=== PATIENT | female | born 1985 | race African-American/Black ===

== ENCOUNTER 2020-12-14 18:07 | Emergency (ER) | payer OTHER ==
[2020-12-14 18:28] VITALS: TEMP 98.2; BMI 37.8
[2020-12-14] MEDS ORDERED: SODIUM CHLORIDE 1,000 ML IV STA ×2 (19:26→20:34)
[2020-12-14] MEDS ORDERED: METOCLOPRAMIDE HCL INJECTION 10 MG/2 ML VIAL IVPB ONE (19:32)
[2020-12-14] MEDS ORDERED: ACETAMINOPHEN 1000 MG/100 ML VIAL (NON FORMULARY) IVPB ONE (19:32)
[2020-12-14] MEDS ORDERED: ACETAMINOPHEN INJECTION 100 ML IVPB ONE (19:38)
[2020-12-14] MEDS ORDERED: METOCLOPRAMIDE HCL INJECTION 10 MG/2 ML VIAL ONE (19:38)
[2020-12-14 19:55] LABS: BASO % 1.1 % (0-2.0); EOS % 0.7 % (0-4.5); HEMATOCRIT 31.4 % (32.4-45.2); HEMOGLOBIN 10.4 GM/dL (10.7-15.3); LYMPH % 23.6 % (8-40); MCH 29.3 pg (25.7-33.7); MCHC 33.1 g/dl (32.0-36.0); MEAN CELL VOLUME 88.4 fl (80-96); MEAN PLT VOLUME 9.3 fl (7.5-11.1); MONO % 10.2 % (3.8-10.2); NEUT % 64.4 % (42.8-82.8); PLATELET COUNT 287 K/MM3 (134-434); RBC 3.55 M/mm3 (3.60-5.2); RDW 13.3 % (11.6-15.6); WHITE BLOOD COUNT 7.9 K/mm3 (4.0-10.0)
[2020-12-14 19:56] LABS: URINE APPEARANCE CLEAR; URINE BILIRUBIN NEGATIVE (NEGATIVE); URINE COLOR YELLOW; URINE GLUCOSE (UA) NEGATIVE (NEGATIVE); URINE KETONE 1+ (NEGATIVE); URINE LEUK ESTERASE NEGATIVE (NEGATIVE); URINE NITRITE NEGATIVE (NEGATIVE); URINE PROTEIN NEGATIVE (NEGATIVE); URINE UROBILINOGEN 0.2 mg/dL (0.2-1.0)
[2020-12-14 19:58] LABS: POTASSIUM 4.1 mmol/L (3.5-5.1)
[2020-12-14 20:00] LABS: BLOOD UREA NITROGEN 11.4 mg/dL (7-18); CALCIUM 9.4 mg/dL (8.5-10.1)
[2020-12-14 20:04] LABS: CREATININE 0.6 mg/dL (0.55-1.3)
[2020-12-14 20:06] LABS: BILIRUBIN,TOTAL 0.2 mg/dL (0.2-1); TOT PROT 7.1 g/dl (6.4-8.2)
[2020-12-14 20:43] VITALS: BP 112/64; PULSE 79
== END 2020-12-14 21:53 | disposition home or self-care (01) ==
LOC: JER 18:07
PROC: 3E0333Z Introduction of Anti-inflammatory into Peripheral Vein, Percutaneous Approach (ICD-10-PCS; principal; 2020-12-14)
PROC: 3E033GC Introduction of Other Therapeutic Substance into Peripheral Vein, Percutaneous Approach (ICD-10-PCS; 2020-12-14)
PROC: 3E0337Z Introduction of Electrolytic and Water Balance Substance into Peripheral Vein, Percutaneous Approach (ICD-10-PCS; 2020-12-14)
DX: E86.0 Dehydration (principal); I95.1 Orthostatic hypotension; R51.9 Headache, unspecified
CPT/HCPCS: 36415; 80053; 81003; 85025; 93005; 93010; 99284-25; J0131

== ENCOUNTER 2021-03-30 06:06 | Inpatient (IN) | payer OTHER ==
[2021-03-30 07:12] VITALS: BMI 37.9
[2021-03-30] MEDS ORDERED: ELECTROLYTE-148 SOLN 500 ML IV SCH (07:30)
[2021-03-30] MEDS ORDERED: CITRIC ACID/SODIUM CITRATE 30 ML UNIT-DOSE CUP PO ONE ×2 (07:30→08:06)
[2021-03-30] MEDS ORDERED: OXYTOCIN 20 UNITS in 0.9% NS 20 UNIT/1,000 ML INFUS.BAG IV ONE ×2 (07:58→10:25)
[2021-03-30] MEDS ORDERED: ELECTROLYTE-148 SOLN 1,000 ML IV SCH (08:00)
[2021-03-30] MEDS ORDERED: ELECTROLYTE-148 SOLN 500 ML IV ONE (08:06)
[2021-03-30] MEDS ORDERED: ONDANSETRON 4 MG/2 ML VIAL IVPUSH PRN (09:36)
[2021-03-30] MEDS ORDERED: morphine SULFATE/PF 0.5 MG/ML (2cc Syringe - QUVA) EP ONE (09:36)
[2021-03-30] MEDS ORDERED: oxyCODONE HCL 5 MG TABLET PO PRN ×2 (09:38)
[2021-03-30] MEDS ORDERED: IBUPROFEN 600 MG TABLET (FP) PO PRN (09:38)
[2021-03-30] MEDS ORDERED: METHYLERGONOVINE MALEATE 0.2 MG/1 ML AMP IM PRN (09:38)
[2021-03-30] MEDS ORDERED: OXYTOCIN 20 UNITS in 0.9% NS 20 UNIT/1,000 ML INFUS.BAG IV SCH (09:45)
[2021-03-30] MEDS: PRENATAL VITAMINS W/ FOLIC ACID TABLET (FP) PO SCH (10:55)
[2021-03-30] MEDS: ELECTROLYTE-148 SOLN 1,000 ML IV SCH (10:55)
[2021-03-30] MEDS: IBUPROFEN 800 MG/8 ML IJ IVPB PRN ×2 (12:33→19:46)
[2021-03-30] MEDS ORDERED: LABETALOL HCL 100 MG TABLET (FP) PO ONE (20:30)
[2021-03-30] MEDS ORDERED: SENNOSIDES/DOCUSATE COMBO (SENNA PLUS) TABLET (UD) PO PRN (22:00)
[2021-03-31] MEDS: ACETAMINOPHEN 325 MG TABLET (FP) PO PRN ×4 (04:10→20:16)
[2021-03-31] MEDS: SIMETHICONE 80 MG TAB.CHEW (FP) PO PRN ×4 (04:10→20:17)
[2021-03-31] MEDS: IBUPROFEN 600 MG TABLET (FP) PO PRN ×4 (04:11→20:16)
[2021-03-31] MEDS ORDERED: diphenhydrAMINE HCL 25 MG CAPSULE (FP) PO PRN (04:15)
[2021-03-31] MEDS: ELECTROLYTE-148 SOLN 1,000 ML IV SCH (09:10)
[2021-03-31] MEDS: PRENATAL VITAMINS W/ FOLIC ACID TABLET (FP) PO SCH (09:14)
[2021-03-31 09:23] LABS: BASO % 0.6 % (0-2.0); EOS % 0.4 % (0-4.5); HEMATOCRIT 27.1 % (32.4-45.2); HEMOGLOBIN 8.6 GM/dL (10.7-15.3); MCH 25.6 pg (25.7-33.7); MCHC 31.7 g/dl (32.0-36.0); MEAN CELL VOLUME 80.8 fl (80-96); MEAN PLT VOLUME 9.3 fl (7.5-11.1); MONO % 10.6 % (3.8-10.2); NEUT % 71.4 % (42.8-82.8); PLATELET COUNT 241 10^3/uL (134-434); RBC 3.35 M/mm3 (3.60-5.2); RDW 15.1 % (11.6-15.6); WHITE BLOOD COUNT 10.1 K/mm3 (4.0-10.0)
[2021-03-31] MEDS ORDERED: BISACODYL 10 MG SUPP.RECT RC PRN (09:38)
[2021-04-01] MEDS: IBUPROFEN 600 MG TABLET (FP) PO PRN ×2 (00:31→07:51)
[2021-04-01] MEDS: ACETAMINOPHEN 325 MG TABLET (FP) PO PRN ×2 (00:31→07:51)
[2021-04-01] MEDS: SIMETHICONE 80 MG TAB.CHEW (FP) PO PRN ×2 (00:32→07:51)
[2021-04-01] MEDS: ELECTROLYTE-148 SOLN 1,000 ML IV SCH (09:19)
[2021-04-01 09:53] VITALS: BP 138/93; PULSE 107; TEMP 77
[2021-04-01] MEDS: PRENATAL VITAMINS W/ FOLIC ACID TABLET (FP) PO SCH (10:24)
== END 2021-04-01 12:45 | disposition home or self-care (01) | DRG 540 ==
LOC: JLDR 06:06 → J3W 10:53
PROVIDERS: ADMIT Obstetrics & Gynecology; ATTEND Obstetrics & Gynecology
PROC: 10D00Z1 Extraction of Products of Conception, Low, Open Approach (ICD-10-PCS; principal; 2021-03-30)
PROC: 0UB70ZZ Excision of Bilateral Fallopian Tubes, Open Approach (ICD-10-PCS; 2021-03-30)
DX: O34.211 Maternal care for low transverse scar from previous cesarean delivery (principal); N85.8 Other specified noninflammatory disorders of uterus; Z3A.38 38 weeks gestation of pregnancy; Z30.2 Encounter for sterilization; O10.92 Unspecified pre-existing hypertension complicating childbirth; Z37.0 Single live birth
CPT/HCPCS: 36415; 85025; 88302-TC; 88307-TC